=== PATIENT | male | born 1965 | race Caucasian/White ===

== ENCOUNTER 2017-03-28 03:39 | Observation (INO) ==
--- NOTE | 2017-03-28 04:10 | Emergency Department Note ---
Disposition Clinical Impression: Congestive heart failure Qualifiers: Congestive heart failure type: unspecified congestive heart failure type Congestive heart failure chronicity: acute Qualified Code(s): I50.9 - Heart failure, unspecified Disposition: Still a Patient Referrals: NO,PCP [Primary Care Provider] - Forms: ED Satisfaction Letter Time of Disposition: 06:35 SOB HPI - General Chief Complaint: ED Shortness of Breath/Dyspnea Stated Complaint: ALEC Time Seen by Provider: 03/28/17 03:52 Source: patient Mode of arrival: ambulatory Limitations: no limitations Nursing Notes Reviewed: Yes Vital Signs Reviewed: Yes - History of Present Illness Patient presents to the emergency department with complaints of shortness of breath. States that he has been progressively short of breath over the last 3- 4 days. States he is unable to sleep at approximately 4 hours of sleep the last 3 days. He denies any history of hypertension, diabetes, cardiovascular disease. States he has never had an EKG done before. He is a smoker. Denies any fever. He does complain of some epigastric pain at this time denies any radiation to chest pain into the left shoulder left arm. No diaphoresis. No nausea or vomiting. Denies any lower extremity swelling. Has had some periods that diarrhea. Pt Subjective Complaint: shortness of breath Onset (ago): day(s) (2-3) Severity: moderate Consistency/Duration: gradually worsening Improves with: nothing Worsens with: lying flat, exertion Associated symptoms: Reports: chest pain (points to epigastric pain. ), wheezing, abdominal pain. Denies: fever, cough, sputum production, nausea/ vomiting, syncope, sense of impending doom Treatment prior to arrival: none - Related Data Allergies Allergy/AdvReac Type Severity Reaction Status Date / Time No Known Allergies Allergy Verified 03/28/17 03:41 All systems ED: reviewed and negative except as stated. Constitutional: Denies: fever, chills, weakness, weight change Eyes: Denies: eye pain, eye discharge, vision change ENT ED: Denies: ear pain, throat pain, dental pain, hearing loss, epistaxis, congestion, dysphagia Cardiovascular: Reports: chest pain Respiratory: Reports: cough, dyspnea, wheezes. Denies: hemoptysis, stridor, sputum production Gastrointestinal: Reports: abdominal pain (epigastric ) Musculoskeletal: Denies: back pain, neck pain, arthralgia, myalgia Integumentary: Denies: rash, abrasion, lesions Neurological: Denies: headache, weakness, numbness, paresthesias, confusion, abnormal gait, vertigo Psychiatric: Denies: anxiety, depression, suicidal thoughts, homicidal thoughts , auditory hallucinations, visual hallucinations Past Medical History - Past Medical History Attestation: Yes The following information was validated with the patient. Source: patient, nursing notes reviewed Medical history: Reports: no medical history Psychiatric history: Reports: depression - Social History Smoking Status: Current every day smoker Smokeless Tobacco Status: No Alcohol use: Reports: occasionally Drug use: Reports: none Physical Exam - General Limitations: no limitations General appearance: alert - Head Head exam: atraumatic, normocephalic, normal inspection - Eye Eye exam: Present: normal appearance, PERRL, EOMI - Expanded ENT Exam External ear exam: Present: normal external inspection. Absent: pain with movement Nose exam: negative: rhinorrhea, sinus tenderness Mouth exam: Present: normal external inspection Teeth exam: Present: normal inspection Throat exam: Present: normal inspection - Neck Neck exam: Present: normal inspection, full ROM, trachea midline. Absent: tenderness, meningismus, lymphadenopathy, thyromegaly - Chest Chest inspection: Present: normal inspection, symmetric chest wall rise. Absent : tenderness, rash, abscess - Expanded Respiratory Exam Location: wheezes: Left, Right, Lower, rales: Right, Lower, decreased breath sounds: Left, Right, Upper, Lower - Cardiovascular Cardiovascular exam: Present: regular rate, normal rhythm, normal heart sounds. Absent: systolic murmur, diastolic murmur, JVD - Expanded Cardiovascular Exam Peripheral pulses: 3+: carotid (R), carotid (L), radial (R), radial (L), posterior tibialis (R), posterior tibialis (L), dorsalis pedis (R), dorsalis pedis (L) - Abdominal Exam Abdominal exam: Present: soft, Non-Tender, normal bowel sounds, hypoactive bowel sounds, other (large abdomen, tympanic ). Absent: tenderness, distention , guarding, rebound, rigidity Abdominal tenderness: Present: epigastrium - Extremities Exam Extremities exam: Present: normal inspection, full ROM. Absent: tenderness, pedal edema - Back Exam Back exam: Present: normal inspection, full ROM. Absent: tenderness, muscle spasm, rashes, sciatic notch tenderness (L) - Neurological Exam Neurological exam: Present: alert, oriented X3, CN II-XII intact, normal gait, reflexes normal. Absent: motor sensory deficit - Skin Skin exam: Present: warm, dry, intact, normal color. Absent: erythema ( ) Course - Reevaluation(s) Reevaluation #1: discussed with patient and his the need to obtain CTA chest and rule out PE. vs. CHF. Patient states Morphine helped "some". States the shortness of breath has just been getting progressively worse, making it difficult for him to walk into work from the parking lot without stopping several times. He states this is "just not me, I never get this out of breath". At this time he appears to be in no acute distress. Oxygen is maintained at 3l/min per n.c., heart monitor showing SR, Previous CXR from 10 years shows his heart is quite enlarged from that study. Time: 05:19 Vital Signs Temperature 98.2 F 03/28/17 03:42 Pulse Rate 80 03/28/17 03:42 Respiratory Rate 20 03/28/17 03:42 Blood Pressure 128/80 03/28/17 03:42 O2 Sat by Pulse Oximetry 96 03/28/17 03:42 Temperature 98.2 F 03/28/17 03:42 Pulse Rate 77 03/28/17 05:05 Respiratory Rate 18 03/28/17 05:05 Blood Pressure 101/72 03/28/17 05:05 O2 Sat by Pulse Oximetry 97 03/28/17 05:05 Oxygen Delivery Oxygen Delivery Room Air Shortness of Breath/Dyspnea - Differential Diagnosis Likely: congestive heart failure - Lab Data Lab results reviewed: Yes I reviewed the patient's lab results. Result diagrams: 03/28/17 04:30 03/28/17 04:30 Lab Results 03/28/17 03/28/17 03/28/17 Range/Units 04:30 04:30 04:30 WBC 7.3 (4.3-11.1) K/mcL RBC 4.43 (4.19-5.50) M/mcL Hgb 14.0 (12.9-16.9) g/dL Hct 41.9 (37.5-50.1) % MCV 94.6 (83.0-100.0) fL MCH 31.6 (28.0-33.3) pg MCHC 33.4 (31.6-35.5) g/dL RDW 14.1 (11.5-14.5) % Plt Count 211 (140-400) K/mcL MPV 10.0 (9.4-12.4) fL Immature Gran % 0.3 (0-4) % Seg Neutrophils % 55.3 % Lymphocytes % 35.0 % Monocytes % 7.1 % Eosinophils % 1.6 % Basophils % 0.7 % Neutrophils # 4.1 (1.6-8.9) K/mcL Lymphocytes # 2.6 (0.6-4.6) K/mcL Monocytes # 0.5 (0.0-1.3) K/mcL Eosinophils # 0.1 (0.0-0.6) K/mcL Basophils # 0.1 (0.0-0.2) K/mcL D-Dimer 1255 H (0-500) ng/mLFEU Sodium (136-145) mEq/L Potassium (3.5-4.5) mEq/L Chloride (98-109) mEq/L Carbon Dioxide (19-29) mEq/L BUN (8-26) mg/dL Creatinine (0.72-1.25) mg/dL Est GFR ( Amer) (> 60) Est GFR (Non-Af Amer) (> 60) BUN/Creatinine Ratio (6-26) Glucose (70-99) mg/dL Calculated Osmolality (280-300) Calcium (8.6-10.8) mg/dL Total Bilirubin (0.2-1.2) mg/dL Direct Bilirubin (0.0-0.5) mg/dL Indirect Bilirubin (0.0-1.2) mg/dL AST (5-34) Units/L ALT (0-55) Units/L Alkaline Phosphatase (38-126) Units/L Troponin I 0.02 (0-0.03) ng/mL B-Natriuretic Peptide (0-100) pg/mL Serum Total Protein (6.0-8.3) g/dL Albumin (3.5-5.0) g/dL Globulin (2.4-3.5) g/dL Albumin/Globulin Ratio (1.1-2.2) Amylase (25-125) Units/L Lipase (8-78) Units/L 03/28/17 03/28/17 Range/Units 04:30 04:30 WBC (4.3-11.1) K/mcL RBC (4.19-5.50) M/mcL Hgb (12.9-16.9) g/dL Hct (37.5-50.1) % MCV (83.0-100.0) fL MCH (28.0-33.3) pg MCHC (31.6-35.5) g/dL RDW (11.5-14.5) % Plt Count (140-400) K/mcL MPV (9.4-12.4) fL Immature Gran % (0-4) % Seg Neutrophils % % Lymphocytes % % Monocytes % % Eosinophils % % Basophils % % Neutrophils # (1.6-8.9) K/mcL Lymphocytes # (0.6-4.6) K/mcL Monocytes # (0.0-1.3) K/mcL Eosinophils # (0.0-0.6) K/mcL Basophils # (0.0-0.2) K/mcL D-Dimer (0-500) ng/mLFEU Sodium 138 (136-145) mEq/L Potassium 4.0 (3.5-4.5) mEq/L Chloride 105 (98-109) mEq/L Carbon Dioxide 25 (19-29) mEq/L BUN 8 (8-26) mg/dL Creatinine 0.84 (0.72-1.25) mg/dL Est GFR ( Amer) > 60 (> 60) Est GFR (Non-Af Amer) > 60 (> 60) BUN/Creatinine Ratio 10 (6-26) Glucose 109 H (70-99) mg/dL Calculated Osmolality 285 (280-300) Calcium 9.3 (8.6-10.8) mg/dL Total Bilirubin 0.9 (0.2-1.2) mg/dL Direct Bilirubin 0.4 (0.0-0.5) mg/dL Indirect Bilirubin 0.5 (0.0-1.2) mg/dL AST 29 (5-34) Units/L ALT 59 H (0-55) Units/L Alkaline Phosphatase 61 (38-126) Units/L Troponin I (0-0.03) ng/mL B-Natriuretic Peptide 1637 H (0-100) pg/mL Serum Total Protein 7.2 (6.0-8.3) g/dL Albumin 3.6 (3.5-5.0) g/dL Globulin 3.6 H (2.4-3.5) g/dL Albumin/Globulin Ratio 1.0 L (1.1-2.2) Amylase 29 (25-125) Units/L Lipase 28 (8-78) Units/L - Radiology Data Radiology results reviewed: Yes I reviewed the patient's radiology results. S.B.Faustino - Janis.Wily Background: Presenting Complaint, Relevant PMH, Meds, & Allergies Assessment: Vital Signs, Course and respsone to treatment, Exam Concerns, Patient/Family Expectation, Pertinant Lab Results, Outstanding Labs Recommendation: Recommendation based on pending studies, treatments, or consults S.B.A.Tam Report Given to: JASWINDER Edwards Repor Time: 06:35 (.) Attestation Statement - Attestation Attestation: I examined this patient and my medical decision-making was reviewed with the ENVIRONMENTAL STUDIES PROFESSOR/NERIS/Advanced Practice Nurse/Resident Physician. I agree with the documented findings, disposition and treatment plan as described except to the extent set forth below. The patient to ED with difficulty in breathing. Has progressed over 3-4 days. Not sleeping. Exam shows him in no respiratory distress. Few scattered rales. Plan. The patient has an enlarged heart on chest x-ray. Elevated BNP dimer was elevated so CT was done that shows some edema. Patient is admitted to medicine. History of Present Illness - General Chief Complaint: ED Shortness of Breath/Dyspnea Stated Complaint: ALEC Time Seen by Provider: 03/28/17 03:52 Limitations: no limitations - History of Present Illness Severity: moderate Improves with: nothing Worsens with: lying flat, exertion Associated symptoms: Reports: chest pain (points to epigastric pain. ), wheezing, abdominal pain. Denies: fever, cough, sputum production, nausea/ vomiting, syncope, sense of impending doom Treatment prior to arrival: none - Related Data Allergies Allergy/AdvReac Type Severity Reaction Status Date / Time No Known Allergies Allergy Verified 03/28/17 03:41
[2017-03-28] MEDS ORDERED: 0.9 % Sodium Chloride 1,000 ML IVC SCH (04:15)
[2017-03-28] MEDS ORDERED: *HR* Morphine 2 MG/ML SYRINGE IVP ONE (04:33)
[2017-03-28 04:38] LABS: Basophils # 0.1 K/mcL (0.0-0.2); Basophils % 0.7 %; Eosinophils # 0.1 K/mcL (0.0-0.6); Eosinophils % 1.6 %; Hematocrit 41.9 % (37.5-50.1); Immature Granulocytes % 0.3 % (0-4); Lymphocytes # 2.6 K/mcL (0.6-4.6); Mean Corpuscular HGB Conc 33.4 g/dL (31.6-35.5); Mean Corpuscular Hemoglobin 31.6 pg (28.0-33.3); Mean Corpuscular Volume 94.6 fL (83.0-100.0); Monocytes # 0.5 K/mcL (0.0-1.3); Monocytes % 7.1 %; Neutrophils # 4.1 K/mcL (1.6-8.9); Platelet Count 211 K/mcL (140-400); Red Blood Count 4.43 M/mcL (4.19-5.50); Red Cell Distribution Width 14.1 % (11.5-14.5); Segmented Neutrophils % 55.3 %
[2017-03-28 04:58] LABS: Alanine Aminotransferase 59 Units/L (0-55); Albumin 3.6 g/dL (3.5-5.0); Alkaline Phosphatase 61 Units/L (38-126); Amylase 29 Units/L (25-125); Aspartate Amino Transferase 29 Units/L (5-34); BUN/Creatinine Ratio 10 (6-26); Bilirubin,Direct 0.4 mg/dL (0.0-0.5); Bilirubin,Indirect 0.5 mg/dL (0.0-1.2); Bilirubin,Total 0.9 mg/dL (0.2-1.2); Blood Urea Nitrogen 8 mg/dL (8-26); Calcium 9.3 mg/dL (8.6-10.8); Carbon Dioxide 25 mEq/L (19-29); Chloride 105 mEq/L (98-109); Globulin 3.6 g/dL (2.4-3.5); Glucose 109 mg/dL (70-99); Lipase 28 Units/L (8-78); Osmolality,Calculated 285 (280-300); Sodium 138 mEq/L (136-145); Total Protein 7.2 g/dL (6.0-8.3); eGFR For African Americans > 60 (> 60); eGFR For Non-African Americans > 60 (> 60)
[2017-03-28] MEDS ORDERED: Furosemide 40 MG/4 ML VIAL IVP ONE (06:33)
--- NOTE | 2017-03-28 06:44 | Emergency Department Note ---
Disposition Clinical Impression: Congestive heart failure Qualifiers: Congestive heart failure type: unspecified congestive heart failure type Congestive heart failure chronicity: acute Qualified Code(s): I50.9 - Heart failure, unspecified Disposition: Admitted As Inpatient Condition: Fair SOB HPI - General Chief Complaint: ED Shortness of Breath/Dyspnea Stated Complaint: ALEC Time Seen by Provider: 03/28/17 03:52 Source: patient Mode of arrival: ambulatory Limitations: no limitations - History of Present Illness Severity: moderate Improves with: nothing Worsens with: lying flat, exertion Associated symptoms: Reports: chest pain (points to epigastric pain. ), wheezing, abdominal pain. Denies: fever, cough, sputum production, nausea/ vomiting, syncope, sense of impending doom Treatment prior to arrival: none - Related Data Allergies Allergy/AdvReac Type Severity Reaction Status Date / Time No Known Allergies Allergy Verified 03/28/17 03:41 Constitutional: Denies: fever, chills, weakness, weight change Eyes: Denies: eye pain, eye discharge, vision change ENT ED: Denies: ear pain, throat pain, dental pain, hearing loss, epistaxis, congestion, dysphagia Cardiovascular: Reports: chest pain Respiratory: Reports: cough, dyspnea, wheezes. Denies: hemoptysis, stridor, sputum production Gastrointestinal: Reports: abdominal pain (epigastric ) Musculoskeletal: Denies: back pain, neck pain, arthralgia, myalgia Integumentary: Denies: rash, abrasion, lesions Neurological: Denies: headache, weakness, numbness, paresthesias, confusion, abnormal gait, vertigo Psychiatric: Denies: anxiety, depression, suicidal thoughts, homicidal thoughts , auditory hallucinations, visual hallucinations Past Medical History - Past Medical History Medical history: Reports: no medical history Psychiatric history: Reports: depression - Social History Smoking Status: Current every day smoker Smokeless Tobacco Status: No Alcohol use: Reports: occasionally Drug use: Reports: none Physical Exam - General Limitations: no limitations General appearance: alert Course Course Narrative: Assumed care of this patient from Augustina Badillo CNP. Patient is reportedly dyspneic x 3 days and has been found to have cardiomegaly, pulmonary vascular congestion, interstitial edema, bilateral pleural effusions, rales, and several mediastinal lymph nodes. Vitals are normal and stable. He does not have an O2 requirement. He tells me that he had an upper respiratory infection a few weeks ago that "just never went away". He has had sinus congestion (frontal pressure) and post-nasal drainage. He thought this was causing his dyspnea so he called his PCP and was given Rx Augmentin after a telemedicine evaluation. His main complaint today is orthopnea which has caused very troubling insomnia. He will require admission for diuresis and further evaluation. Hospitalist was consulted. He has accepted the patient. Of note, patient reportedly presented initially with more of an infectious type of appearance and thus IV fluid were ordered - at a slow rate. When the diagnosis of CHF was made, the fluids were to be discontinued, however the patient had inadvertantly already received a liter. The nurse reports that the rate was not put back to originally ordered rate after it was opened up to flush the morphine that was given. PAtient does not report increased dyspnea. He has been given IV lasix. The case was discussed with Dr. Alatorre. She has seen the patient and agrees with the plan to admit the patient. Vital Signs Temperature 98.2 F 03/28/17 03:42 Pulse Rate 80 03/28/17 03:42 Respiratory Rate 20 03/28/17 03:42 Blood Pressure 128/80 03/28/17 03:42 O2 Sat by Pulse Oximetry 96 03/28/17 03:42 Temperature 98.2 F 03/28/17 03:42 Pulse Rate 90 03/28/17 06:56 Respiratory Rate 18 03/28/17 07:18 Blood Pressure 112/93 03/28/17 07:18 O2 Sat by Pulse Oximetry 94 03/28/17 06:56 Oxygen Delivery Oxygen Delivery Room Air Shortness of Breath/Dyspnea - Lab Data Result diagrams: 03/28/17 04:30 03/28/17 04:30 Lab Results 03/28/17 03/28/17 03/28/17 Range/Units 04:30 04:30 04:30 WBC 7.3 (4.3-11.1) K/mcL RBC 4.43 (4.19-5.50) M/mcL Hgb 14.0 (12.9-16.9) g/dL Hct 41.9 (37.5-50.1) % MCV 94.6 (83.0-100.0) fL MCH 31.6 (28.0-33.3) pg MCHC 33.4 (31.6-35.5) g/dL RDW 14.1 (11.5-14.5) % Plt Count 211 (140-400) K/mcL MPV 10.0 (9.4-12.4) fL Immature Gran % 0.3 (0-4) % Seg Neutrophils % 55.3 % Lymphocytes % 35.0 % Monocytes % 7.1 % Eosinophils % 1.6 % Basophils % 0.7 % Neutrophils # 4.1 (1.6-8.9) K/mcL Lymphocytes # 2.6 (0.6-4.6) K/mcL Monocytes # 0.5 (0.0-1.3) K/mcL Eosinophils # 0.1 (0.0-0.6) K/mcL Basophils # 0.1 (0.0-0.2) K/mcL D-Dimer 1255 H (0-500) ng/mLFEU Sodium (136-145) mEq/L Potassium (3.5-4.5) mEq/L Chloride (98-109) mEq/L Carbon Dioxide (19-29) mEq/L BUN (8-26) mg/dL Creatinine (0.72-1.25) mg/dL Est GFR ( Amer) (> 60) Est GFR (Non-Af Amer) (> 60) BUN/Creatinine Ratio (6-26) Glucose (70-99) mg/dL Calculated Osmolality (280-300) Calcium (8.6-10.8) mg/dL Total Bilirubin (0.2-1.2) mg/dL Direct Bilirubin (0.0-0.5) mg/dL Indirect Bilirubin (0.0-1.2) mg/dL AST (5-34) Units/L ALT (0-55) Units/L Alkaline Phosphatase (38-126) Units/L Troponin I 0.02 (0-0.03) ng/mL B-Natriuretic Peptide (0-100) pg/mL Serum Total Protein (6.0-8.3) g/dL Albumin (3.5-5.0) g/dL Globulin (2.4-3.5) g/dL Albumin/Globulin Ratio (1.1-2.2) Amylase (25-125) Units/L Lipase (8-78) Units/L 03/28/17 03/28/17 Range/Units 04:30 04:30 WBC (4.3-11.1) K/mcL RBC (4.19-5.50) M/mcL Hgb (12.9-16.9) g/dL Hct (37.5-50.1) % MCV (83.0-100.0) fL MCH (28.0-33.3) pg MCHC (31.6-35.5) g/dL RDW (11.5-14.5) % Plt Count (140-400) K/mcL MPV (9.4-12.4) fL Immature Gran % (0-4) % Seg Neutrophils % % Lymphocytes % % Monocytes % % Eosinophils % % Basophils % % Neutrophils # (1.6-8.9) K/mcL Lymphocytes # (0.6-4.6) K/mcL Monocytes # (0.0-1.3) K/mcL Eosinophils # (0.0-0.6) K/mcL Basophils # (0.0-0.2) K/mcL D-Dimer (0-500) ng/mLFEU Sodium 138 (136-145) mEq/L Potassium 4.0 (3.5-4.5) mEq/L Chloride 105 (98-109) mEq/L Carbon Dioxide 25 (19-29) mEq/L BUN 8 (8-26) mg/dL Creatinine 0.84 (0.72-1.25) mg/dL Est GFR ( Amer) > 60 (> 60) Est GFR (Non-Af Amer) > 60 (> 60) BUN/Creatinine Ratio 10 (6-26) Glucose 109 H (70-99) mg/dL Calculated Osmolality 285 (280-300) Calcium 9.3 (8.6-10.8) mg/dL Total Bilirubin 0.9 (0.2-1.2) mg/dL Direct Bilirubin 0.4 (0.0-0.5) mg/dL Indirect Bilirubin 0.5 (0.0-1.2) mg/dL AST 29 (5-34) Units/L ALT 59 H (0-55) Units/L Alkaline Phosphatase 61 (38-126) Units/L Troponin I (0-0.03) ng/mL B-Natriuretic Peptide 1637 H (0-100) pg/mL Serum Total Protein 7.2 (6.0-8.3) g/dL Albumin 3.6 (3.5-5.0) g/dL Globulin 3.6 H (2.4-3.5) g/dL Albumin/Globulin Ratio 1.0 L (1.1-2.2) Amylase 29 (25-125) Units/L Lipase 28 (8-78) Units/L
--- NOTE | 2017-03-28 08:37 | Internal Med History&Physical ---
Date of Encounter: 03/28/17 Time of Encounter: 08:43 Assessment and Plan (1) Congestive heart failure Current visit: Yes Status: Acute he has worsening exertional dyspnea , CTA neg for PE(had elevated d-dimer) CTA showed interstitial edema and pleural effsuion IV lasix was given at ED,reports mild clinical improvement BNP elevated will order ECHO> noted that EF of 10-15% with severe global hypokinesia. IV lasix 40mg BID he has new onset CHF, will order cardiac diet with fluid restriction. consider cardio consult , will need ischemic work up, will not start BB as he has acute onset CHF and was not on BB at home. he has wheezing on exam, he was a past smoker and quit recently, will add duonebs for now. will keep BIPAP prn for overnight Qualifiers: Congestive heart failure type: unspecified congestive heart failure type Congestive heart failure chronicity: acute Qualified Code(s): I50.9 - Heart failure, unspecified (2) HTN (hypertension) Current visit: Yes Status: Acute stable Qualifiers: Hypertension type: essential hypertension Qualified Code(s): I10 - Essential (primary) hypertension (3) Diarrhea Current visit: Yes Status: Acute reports that its 2/2 laxative use that he took for constipation. will hold the laxative now, will monitor will need OP referral for colonoscopy, he reports that he never had colonoscopy. Qualifiers: Diarrhea type: unspecified type Qualified Code(s): R19.7 - Diarrhea, unspecified Internal Medicine - H&P: HPI Chief complaint: sob Admitted From: Home Plans for Post Hospital Care: Home History of present illness: Mr. Avendaño is a 51 year old male with PMH of HTN and past smoker presented to ED with exertional dyspnea fro 3 days , he reports that he had an upper respiratory infection a few weeks ago that "just never went away". He has had sinus congestion (frontal pressure) and post-nasal drainage. He thought this was causing his dyspnea so he called his PCP and was given Rx Augmentin after a telemedicine evaluation. His main complaint today is orthopnea and exertional dyspnea that has worsened over the last 3 days. He has been given IV lasix at ED and at the time of my evaluation, he says he feels better. he also c/o some cough with productive sputum - yellowish , no fever or chest pain. he reports that he had diarrhea initially for which he took imodium that made him constipated and took laxatives and has diarrhea again. he denies fever or chest pain. no h/o CHF or COPD. Past Med Surg Social Fam HX - Past Medical History Medical history: no medical history Psychiatric history: depression - Social History Smoking Status: Current every day smoker Smokeless Tobacco Status: No Alcohol use: occasionally Drug use: none Internal Medicine - H&P: Meds Amoxicillin/Clavulanate [Augmentin] 875 mg PO BIDWM 03/28/17 [History] Bisacodyl [Dulcolax] 10 mg PO DAILY PRN 03/28/17 [History] Bismuth Subsalicylate [Pepto-Bismol] 262 mg PO BID PRN 03/28/17 [History] Loperamide HCl [Imodium A-D] 2 mg PO BID PRN 03/28/17 [History] Allergies No Known Allergies Allergy (Verified 03/28/17 03:41) All Systems PM: A 10-system review of systems was performed and is negative for pertinent findings except as documented above in the HPI. - Constitutional Constitutional: as per HPI - EENT Eyes: no change in vision, no discharge, no pain, no photophobia Ears: as per HPI Nose, mouth and throat: no dysphagia, no nasal discharge, no neck pain, no sore throat - Breasts Breasts: as per HPI - Cardiovascular Cardiovascular ROS IM: as per HPI, dyspnea, dyspnea on exertion, paroxysmal nocturnal dyspnea - Respiratory Respiratory: cough, dyspnea on exertion - Constitutional Vitals: Temp Pulse Resp BP Pulse Ox 97.6 F 93 16 117/85 97 03/28/17 08:04 03/28/17 08:04 03/28/17 08:04 03/28/17 08:04 03/28/17 08:09 General appearance: Present: A&O X 3, no acute distress Exam: Neck supple. Chest bilateral wheezing, no crepitations. CVS S2, no murmurs rubs or gallops. Abdomen soft, mildly distended, nontender, bowel sounds are present. Extremities no edema. Neuro no focal deficits Internal Med - H&P Results - Labs CBC & Chem 7: 03/28/17 04:30 03/28/17 04:30
[2017-03-28] MEDS ORDERED: Naloxone 0.4 MG/ML INJ IVP PRN (08:58)
[2017-03-28] MEDS: Ipratropium/Albuterol Neb 3 ML IH SCH ×4 (11:01→23:54)
[2017-03-28] MEDS: *HR* Heparin 5,000 UNIT/ML VIAL SQ SCH ×2 (11:13→17:50)
[2017-03-28] MEDS: Aspirin 81 MG TAB.CHEW PO SCH (11:13)
--- NOTE | 2017-03-28 17:50 | ECHO - Doppler Report ---
Echocardiogram Name: Dale Westrow Date of Study: 03/28/2017 Date: 1965 Ht: 72.0 in Medical Record#: [id number] Age: 51 Wt: 232.0 lb Gender: Male BSA: 2.27 Order #: [id number] Location: [facility] Room #: 2NE28 Reading Physician: Afshan Zamora DO Weapons Officer: Yamilet Richards RDCS Ordering Physician: Santiago Regalado MD Primary Physician: None Indications: Congestive heart failure Impressions: LVEF 10-15%. There is severe global hypokinesis. Left ventricle is severely dilated. There is evidence of mild diastolic dysfunction of the left ventricle. RV is normal in size with mild reduction of function. Mild mitral regurgitation. Mild tricuspid regurgitation. No pulmonary hypertension. LV apex is suboptimally visualized. Recommend repeat Limited echo with Definity. Findings communicated to ordering provider. Left Ventricular Wall Motion: Rest Echo Findings The apex, apical inferior, mid inferior, basal inferior, apical anterior, mid anterior, basal anterior, apical septal, mid inferior septal, basal inferior septal, apical lateral, mid anterior lateral, basal anterior lateral, mid anterior septal, mid inferior lateral, basal anterior septal and basal inferior lateral almodovar were hypokinetic. Findings: Study Quality * Technically sub-optimal due to body habitus. ECG Findings * Consider sinus rhythm with BBB. Left Ventricle * LVEF 10-15%. * Severely dilated left ventricle. * Indeterminate diastolic function. Aortic Valve * No aortic regurgitation. * Trileaflet aortic valve. * Normal aortic valve structure. * No aortic stenosis. Mitral Valve * Normal mitral valve structure. * No mitral stenosis. * Mild mitral regurgitation. Tricuspid Valve * Tricuspid valve not well visualized. * Mild tricuspid regurgitation. * Estimated RA pressure is 3 mmHg. * Estimated RVSP is 27 mmHg. * No pulmonary hypertension. Pulmonic Valve * Pulmonic valve is not well visualized. * No pulmonic stenosis. * Trace pulmonic regurgitation. Pulmonary Artery * Pulmonary artery not well visualized. Right Atrium * Moderately dilated right atrium. Right Ventricle * RV size is normal with visually mild reduction in function. Normal Lat S josesito. Pericardium * There is no pericardial effusion present. Interatrial Septum * No evidence of PFO by color Doppler. IVC * Normal IVC dimensions and inspiratory collapse. Left Atrium * Severely dilated left atrium. Aorta * Normally sized aortic root. History Hypertension Family History of CAD Measurements: BP: 117/ 85 2D Normal Values RVIDd: 3.60 cm <2.7 cm IVSd: .80 cm 0.6 - 1.0 cm LVIDd: 7.60 cm 3.7 - 5.6 cm LVPWd: 1.20 cm 0.6 - 1.1 cm LVIDs: 7.00 cm 1.5 - 3.6 cm AO: 2.70 cm < 4.0 cm LA: 5.10 cm 2.0 - 4.0cm %FS: 7.89 cm >25 % LVOT Diam: 2.10 cm LA volume: 120 Mitral Valve Peak E:.92 m/sec Peak A:.30 m/sec E/A Ratio:3.1 Peak E' Lat Josesito:4.95 cm/s Peak E' Med Josesito:3.34 cm/s E/E' Lat Ratio:18.5 E/E' Med Ratio:27.5 Tricuspid Valve TV Regurg Peak Grad: 24.00mmHg TV Regurg Peak Josesito: 2.45m/sec Updated by Afshan Zamora on 03/28/2017 5:40:54 PM electronically signed on 03/28/2017 5:46:21 PM with status of Final Wall Motion [place]: 1=Normal, 2=Hypokinesis, 3=Akinesis, 4=Dyskinesis, 5=Aneurysmal, 6=Hyperkinetic, X=Not Visualized (Blank)=Missing
[2017-03-28] MEDS: Furosemide 40 MG/4 ML VIAL IVP SCH (17:51)
--- NOTE | 2017-03-28 18:05 | Electrocardiograph Report ---
[place] [id number] Test Date: 2017-03-28 Pat Name: Dale Avendaño Department: 102 Room: 2NE28 Gender: M Anatomy Teacher: Chris : 1965 Requested By: Afshan Badillo Order Number: [id number] Reading MD: Afshan Zamora Measurements Intervals [facility] Rate: 87 P: 56 SD: 198 QRS: -18 QRSD: 99 T: 174 QT: 398 QTc: 443 Interpretive Statements SINUS RHYTHM LEFT ATRIAL ENLARGEMENT BORDERLINE CRITERIA FOR LVH Nonspecific ST-T wave changes Electronically Signed On 03-28-2017 18:03:26 EDT by Afshan Zamora
[2017-03-28] MEDS ORDERED: Melatonin 3 MG TABLET PO PRN (22:52)
[2017-03-29] MEDS: Ipratropium/Albuterol Neb 3 ML IH SCH ×5 (04:43→20:08)
[2017-03-29] MEDS: *HR* Heparin 5,000 UNIT/ML VIAL SQ SCH ×2 (05:19→17:14)
[2017-03-29 05:23] LABS: Basophils # 0.1 K/mcL (0.0-0.2); Basophils % 0.8 %; Eosinophils # 0.1 K/mcL (0.0-0.6); Eosinophils % 1.3 %; Hematocrit 43.6 % (37.5-50.1); Hemoglobin 14.8 g/dL (12.9-16.9); Immature Granulocytes % 0.5 % (0-4); Lymphocytes # 2.9 K/mcL (0.6-4.6); Lymphocytes % 37.3 %; Mean Corpuscular HGB Conc 33.9 g/dL (31.6-35.5); Mean Corpuscular Hemoglobin 32.8 pg (28.0-33.3); Mean Corpuscular Volume 96.7 fL (83.0-100.0); Mean Platelet Volume 10.2 fL (9.4-12.4); Monocytes # 0.8 K/mcL (0.0-1.3); Neutrophils # 3.8 K/mcL (1.6-8.9); Nucleated Red Blood Cells 0.4 /100 WBC (0); Platelet Count 214 K/mcL (140-400); Red Blood Count 4.51 M/mcL (4.19-5.50); Red Cell Distribution Width 14.4 % (11.5-14.5); Segmented Neutrophils % 49.1 %
[2017-03-29 05:47] LABS: BUN/Creatinine Ratio 9 (6-26); Blood Urea Nitrogen 10 mg/dL (8-26); Calcium 9.1 mg/dL (8.6-10.8); Carbon Dioxide 29 mEq/L (19-29); Chloride 104 mEq/L (98-109); Glucose 98 mg/dL (70-99); Magnesium 2.2 mg/dL (1.6-2.6); Osmolality,Calculated 291 (280-300); Phosphorous 4.8 mg/dL (2.3-4.7); Potassium 3.8 mEq/L (3.5-4.5); Sodium 141 mEq/L (136-145); eGFR For African Americans > 60 (> 60); eGFR For Non-African Americans > 60 (> 60)
--- NOTE | 2017-03-29 08:26 | Internal Med Progress Note ---
<Arik Rabago - Last Filed: 03/29/17 14:57> Date of Encounter: 03/29/17 Time of Encounter: 08:25 - Assessment and plan (1) Acute systolic heart failure Current Visit: Yes Status: Acute Assessment and plan: Patient has new onset acute systolic heart failure. Echo Cario showed a EF of 10-15% with global hypokinesis, left ventricular severe dilation, mild mitral regurgitation and mild tricuspid regurgitation. Patient elevated BNP of 1600. -Patient states that he has been under a lot of stress lately with undergoing bankruptcy, and multiple deaths in the family. -Patient has not had any medical follow-up for the last 7 years. It is unclear if this is acute versus progressive chronic heart failure. She states that his grandparents and his mom had heart disease however he does not know specifically what that was. He denied any family history of certain cardiac arrest. -Furthermore patient has had a upper respiratory infection that preceded the onset of his shortness of breath. This could also be viral cardiomyopathy. -Therefore to unclear if this is ischemic, chronic progressive, or viral cardiomyopathy. -Cardiology evaluated patient and we will diurese patient for her 1-2 days before underwent heart catheterization. -We will continue Lasix 40 mg IV twice a day. -Continue aspirin (2) DVT prophylaxis Current Visit: Yes Status: Acute Assessment and plan: Continue heparin 5000 units subcutaneous every 12 hours (3) URI (upper respiratory infection) Current Visit: Yes Status: Acute Assessment and plan: Patient has had a upper respiratory infection symptoms 2 weeks now consisting of sinus congestion and sinus pain over the frontal and maxillary sinuses. He is prescribed Augmentin, and states his symptoms have improved after starting the antibiotic.He denies sore throat. States he has productive cough. WBC 7.7. afebrile. Continue augmentin: patient has taken two doses before admission. Qualifiers: URI type: unspecified URI Qualified Code(s): J06.9 - Acute upper respiratory infection, unspecified - Subjective Interval history: 51-year-old male presents with chief complaint of shortness of breath of 3 days that has been progressively getting worse. Patient has had upper respiratory tract infection that has just not gone away for a few weeks. He was prescribed Augmentin by his PCP. Patient states his shortness of breath gets worse with laying down and exertion. In the emergency department he was given IV Lasix which helped improve his symptoms. He has had a productive sputum that is yellow. Patient underwent CT of his negative for PE but showed cardiomegaly with mild congestive failure, interstitial edema and vascular congestion. Echocardiogram showed an EF of 10-15% with global left ventricular hypokinesis. This morning patient states his shortness of breath is improved, he is on 2 L oxygen saturating at 96%. He denies chest pain, palpitations, abdominal pain, nausea, vomiting. Patient has never oxygen before. He does not have a past medical history.He has not seen a PCP in the last 7 years. - Constitutional Vitals: Temp Pulse Resp BP Pulse Ox 97.7 F 99 18 107/75 96 03/29/17 06:00 03/29/17 06:00 03/29/17 06:00 03/29/17 06:00 03/29/17 06:00 General appearance: Present: A&O X 3, no acute distress - Other Additional findings: General: Alert and oriented to place time and situation. Without distress HEENT: Head atraumatic, normocephalic, EOMI, PERRLA, neck nontender to palpation , absent Lymphadenopathy, Moist Mucous Membranes, absent JVD Heart: Regular rate and rhythm with no murmur Lungs: Bilateral wheezing diffusely Abdomen: Soft nontender, nondistended positive bowel sounds Extremities: Absent pedal edema, Vascular: Pedal and radial pulses 2 out of 4 Internal Medicine: Result - Labs CBC & Chem 7: 03/29/17 05:04 03/29/17 05:04 Labs: Short CBC 03/29/17 Range/Units 05:04 WBC 7.7 (4.3-11.1) K/mcL Hgb 14.8 (12.9-16.9) g/dL Hct 43.6 (37.5-50.1) % Plt Count 214 (140-400) K/mcL Neutrophils # 3.8 (1.6-8.9) K/mcL BMP 03/29/17 05:04 Sodium 141 Potassium 3.8 Chloride 104 Carbon Dioxide 29 BUN 10 Creatinine 1.06 Glucose 98 Calcium 9.1 - ABG Interpretation ABG results: PT/INR, D-dimer D-Dimer 1255 ng/mLFEU (0-500) H 03/28/17 04:30 Consult Discharge Plan - Plan Referrals: NO,PCP [Primary Care Provider] - <Feliz Alvarado P - Last Filed: 03/29/17 17:52> Date of Encounter: 03/29/17 - Constitutional Vitals: Temp Pulse Resp BP Pulse Ox 98.3 F 103 16 97/71 93 03/29/17 15:07 03/29/17 15:07 03/29/17 15:07 03/29/17 15:07 03/29/17 15:07 Internal Medicine: Result - Labs CBC & Chem 7: 03/29/17 05:04 03/29/17 05:04 Labs: Short CBC 03/29/17 Range/Units 05:04 WBC 7.7 (4.3-11.1) K/mcL Hgb 14.8 (12.9-16.9) g/dL Hct 43.6 (37.5-50.1) % Plt Count 214 (140-400) K/mcL Neutrophils # 3.8 (1.6-8.9) K/mcL BMP 03/29/17 05:04 Sodium 141 Potassium 3.8 Chloride 104 Carbon Dioxide 29 BUN 10 Creatinine 1.06 Glucose 98 Calcium 9.1 - ABG Interpretation ABG results: PT/INR, D-dimer D-Dimer 1255 ng/mLFEU (0-500) H 03/28/17 04:30 - Attending Attestation I examined this patient and my medical decision-making was reviewed with the PASSENGER LOCOMOTIVE ENGINEER/PA/Advanced Practice Nurse/Resident Physician. I agree with the documented findings, disposition and treatment plan as described except to the extent set forth below. cardiac cath to rule out CAD after optimization
[2017-03-29] MEDS: Aspirin 81 MG TAB.CHEW PO SCH (09:34)
[2017-03-29] MEDS: Furosemide 40 MG/4 ML VIAL IVP SCH ×2 (09:34→17:07)
--- NOTE | 2017-03-29 09:37 | Cardiology Consult Note ---
Date of Encounter: 03/29/17 Time of Encounter: 09:37 Assessment and Plan (1) Acute systolic heart failure Current Visit: Yes Status: Acute - New onset congestive heart failure. Echocardiogram done 03/28/2017 shows severe global hypokinesis, left ventricular severe dilation, mild mitral regurgitation and mild tricuspid regurgitation - Unclear etiology, could be progressive chronic heart failure versus viral cardiomyopathy versus ischemic heart disease - Continue diuresis with 40 mg Lasix IV twice a day. We will likely diuresis for another 1-2 days before heart catheterization. (2) URI (upper respiratory infection) Current Visit: Yes Status: Acute Management per primary team. -May be contributing factor to cardiomyopathy. Qualifiers: URI type: unspecified URI Qualified Code(s): J06.9 - Acute upper respiratory infection, unspecified Discussion w patient/family: The assessment and plan as outlined above was discussed with the patient and/or family members who expressed understanding and agreement. All questions were answered. Thank you for involving us in the care of your patient. Please call with any questions. History of Present Illness Consult date: 03/28/17 Requesting physician: Baldo Regalado Consult reason: new onset CHF Chief complaint: dyspnea x 3 days History of present illness: Mr. Avendaño is a 51 year old male with a past medical history of tobacco abuse who presented to [facility] ED with a chief complaint of worsening dyspnea over the last 3 days. No other prior medical history though patient has not seen a primary care physician in over 7 years. He is not currently on any home medications. States he had upper respiratory type symptoms 1-2 weeks ago. He has not been on any medications to treat this. He previously smoked 2 packs a day but quit 2 months ago. Has never required any home oxygen. Patient also describes a 3 month history of intermittent chest discomfort and right leg discomfort that is intermittent and not exacerbated by anything. Patient was initially evaluated in the emergency department and found to have an elevated d-dimer. A CTA of the chest was performed which showed mild congestive heart failure along with small bilateral pleural effusions right greater than left. His BNP was elevated at 1485. They tried to place him on BiPAP though patient tolerated less than 1 minute of this. They have also been diuresing him with Lasix 40 twice a day. The cardiology service was contacted for an ischemic workup and possible heart catheterization. Past Med Surg Social Fam HX - Past Medical History Attestation: Yes The following information was validated with the patient. Source: patient Medical history: no medical history Psychiatric history: depression - Social History Smoking Status: Current every day smoker Smokeless Tobacco Status: No Alcohol use: occasionally Drug use: none Medications and Allergies Amoxicillin/Clavulanate [Augmentin] 875 mg PO BIDWM 03/28/17 [History] Bisacodyl [Dulcolax] 10 mg PO DAILY PRN 03/28/17 [History] Bismuth Subsalicylate [Pepto-Bismol] 262 mg PO BID PRN 03/28/17 [History] Loperamide HCl [Imodium A-D] 2 mg PO BID PRN 03/28/17 [History] Allergies No Known Allergies Allergy (Verified 03/28/17 03:41) All Systems Review: A 10-system review of systems was performed and is negative for pertinent findings except as documented above in the HPI. - Constitutional Constitutional: fatigue - EENT Eyes: no blurred vision Nose, mouth and throat: no sore throat - Cardiovascular Cardiovascular: dyspnea at rest, dyspnea on exertion, other (intermittent chest discomfort), no diaphoresis, no irregular heart rhythm, no leg edema - Respiratory Respiratory: no cough, no dyspnea - Gastrointestinal Gastrointestinal: no abdominal pain - Genitourinary Genitourinary: no dysuria - Musculoskeletal Musculoskeletal: no muscle weakness - Integumentary Integumentary: no rash - Neurological Neurological: no abnormal speech, no focal weakness, no syncope Physical Examination Vital Signs, Last 4 Hours Temp Pulse Resp BP Pulse Ox 03/29/17 06:00 97.7 F 99 18 107/75 96 General: Conversant, No Apparent Distress HEENT: Atraumatic, Mucus Membranes Moist Neck: No JVD Cardiac: Reg Rate and Rhythm, No Murmur Lungs: Other (b/l diffuse wheezes) Neuro: Alert and responsive, No focal deficits noted Abdomen: Soft, Non-Tender Skin: No rashes noted on visualized skin Musculoskeletal: No Chest Wall Tenderness Extremities: No Cyanosis, No Edema, Normal Pulses Results 03/29/17 05:04 03/29/17 05:04 Lab Results 03/29/17 03/29/17 03/29/17 05:04 05:04 05:04 WBC 7.7 Hgb 14.8 Hct 43.6 Plt Count 214 Sodium 141 Potassium 3.8 Chloride 104 Carbon Dioxide 29 BUN 10 Creatinine 1.06 Glucose 98 Calcium 9.1 Magnesium 2.2 B-Natriuretic Peptide 1485 H - Imaging and Cardiology Chest Xray: report reviewed - EKG Interpretation EKG results cardiology: personally reviewed, other (NSR, large P waves, left axis deviation, ST depression in I, avL, V5, V6) Consult Discharge Plan - Plan Referrals: NO,PCP [Primary Care Provider] -
[2017-03-30] MEDS: Ipratropium/Albuterol Neb 3 ML IH SCH ×7 (00:01→23:46)
[2017-03-30] MEDS: *HR* Heparin 5,000 UNIT/ML VIAL SQ SCH ×2 (05:00→20:29)
[2017-03-30 08:12] LABS: INR 1.3; Prothrombin Time 14.2 Seconds (9.4-12.1)
--- NOTE | 2017-03-30 09:02 | Event Note ---
Date of Encounter: 03/30/17 Time of Encounter: 08:57 - Cardiology Event Note 51 yo M with acute systolic CHF. ECHO from 03/28/17 with LV dilation, global dyskinesia, mild mitral and tricuspid regurgitation of unclear etiology progressive heartfailure vs ischemic vs viral etiology. Pt states no chest pain or shortness of breath at rest or with laying flat. On SQ heparin 5000 Q12 with Pt 14.2, INR 1.3. Likely heart catheterization today.
[2017-03-30] MEDS: Aspirin 81 MG TAB.CHEW PO SCH (10:03)
--- NOTE | 2017-03-30 10:14 | Internal Med Progress Note ---
<Arik Rabago - Last Filed: 03/30/17 17:40> Date of Encounter: 03/30/17 Time of Encounter: 14:48 - Assessment and plan (1) Acute systolic heart failure Current Visit: Yes Status: Acute Assessment and plan: Patient has new onset acute systolic heart failure. Echo Cario showed a EF of 10-15% with global hypokinesis, left ventricular severe dilation, mild mitral regurgitation and mild tricuspid regurgitation. Patient elevated BNP of 1600. -Patient states that he has been under a lot of stress lately with undergoing bankruptcy, and multiple deaths in the family. -Patient has not had any medical follow-up for the last 7 years. It is unclear if this is acute versus progressive chronic heart failure. She states that his grandparents and his mom had heart disease however he does not know specifically what that was. He denied any family history of certain cardiac arrest. -Furthermore patient has had a upper respiratory infection that preceded the onset of his shortness of breath. This could also be viral cardiomyopathy. -undergo [facility] today. -appreciate cardiology recommendations. (2) DVT prophylaxis Current Visit: Yes Status: Acute Assessment and plan: Continue heparin 5000 units subcutaneous every 12 hours (3) URI (upper respiratory infection) Current Visit: Yes Status: Acute Assessment and plan: Patient has had a upper respiratory infection symptoms 2 weeks now consisting of sinus congestion and sinus pain over the frontal and maxillary sinuses. He is prescribed Augmentin, and states his symptoms have improved after starting the antibiotic.He denies sore throat. States he has productive cough. WBC 7.7. afebrile. Continue augmentin: patient has taken two doses before admission. Qualifiers: URI type: unspecified URI Qualified Code(s): J06.9 - Acute upper respiratory infection, unspecified - Subjective Interval history: SOB improved with diuresis. Denies CP, palpitations, blurry vision, nausea, abdominal pain, cough, LE pain, muscle aches, dysuria. - Constitutional Vitals: Temp Pulse Resp BP Pulse Ox 97.8 F 88 16 107/80 96 03/30/17 06:39 03/30/17 06:39 03/30/17 07:47 03/30/17 06:39 03/30/17 07:47 General appearance: Present: A&O X 3, no acute distress - Neck Neck exam general surgery: Present: supple, trachea midline. Absent: lymphadenopathy - Respiratory Respiratory exam: Present: CTAB. Absent: accessory muscle use, rales, rhonchi, wheezes - Cardiovascular Cardiovascular exam: Present: RRR, +S1, +S2. Absent: diastolic murmur, gallop, rubs, systolic murmur - GI/Abdominal GI/Abdominal exam: Present: normal bowel sounds, soft, no peritoneal signs. Absent: distended, tenderness - Extremities Exam Extremities exam: Present: warm, radial pulses palpable and symetrical. Absent : calf tenderness, cyanotic, pedal edema - Skin Skin exam: Present: dry, intact Internal Medicine: Result - Labs CBC & Chem 7: 03/29/17 05:04 03/29/17 05:04 - ABG Interpretation ABG results: PT/INR, D-dimer PT 14.2 Seconds (9.4-12.1) H 03/30/17 07:59 D-Dimer 1255 ng/mLFEU (0-500) H 03/28/17 04:30 Consult Discharge Plan - Plan Referrals: Bj Carolina DO [Partnered Physician] - 04/06/17 9:30 am <Arvin Talavera - Last Filed: 03/30/17 19:52> Date of Encounter: 03/30/17 - Assessment and plan (1) Acute systolic heart failure Current Visit: Yes Status: Acute (2) HTN (hypertension) Current Visit: Yes Status: Acute Qualifiers: Hypertension type: essential hypertension Qualified Code(s): I10 - Essential (primary) hypertension (3) URI (upper respiratory infection) Current Visit: Yes Status: Acute Qualifiers: URI type: unspecified URI Qualified Code(s): J06.9 - Acute upper respiratory infection, unspecified (4) Anxiety about health Current Visit: Yes Status: Acute (5) Tobacco abuse Current Visit: Yes Status: Acute - Constitutional Vitals: Temp Pulse Resp BP Pulse Ox 98.1 F 96 18 93/54 95 03/30/17 19:33 03/30/17 19:33 03/30/17 19:33 03/30/17 19:33 03/30/17 19:33 Internal Medicine: Result - Labs CBC & Chem 7: 03/29/17 05:04 03/29/17 05:04 - ABG Interpretation ABG results: PT/INR, D-dimer PT 14.2 Seconds (9.4-12.1) H 03/30/17 07:59 D-Dimer 1255 ng/mLFEU (0-500) H 03/28/17 04:30 - Attending Attestation I examined this patient and my medical decision-making was reviewed with the Resident Physician on 03/30/17. I agree with the documented findings, disposition and treatment plan as described except to the extent set forth below. Mr. Avendaño is currently in observation for acute systolic heart failure. Mr Avendaño just had cardiac cath - non ischemic. He is very anxious about everything. No CP now. Eating fried chicken and [place] fries. Under a lot of stress recently. Exam Alert. Comfortable Heart distant Lungs clear now. I/P 1. Acute systolic heart failure 2. Tobacco 3. Anxiety Further diagnoses and plan as above.
[2017-03-30] MEDS: Furosemide 40 MG/4 ML VIAL IVP SCH ×2 (10:34→16:01)
[2017-03-30] MEDS ORDERED: Nitroglycerin 1,000 MCG/10 ML VIAL IV ONE (12:12)
[2017-03-30] MEDS ORDERED: 0.9 % Sodium Chloride 1,000 ML ONE ×2 (12:12→12:47)
[2017-03-30] MEDS ORDERED: Heparin 1,000 UNITS/500 mL NS 500 ML ONE (12:12)
[2017-03-30] MEDS ORDERED: *HR* Heparin 10,000 UNIT/10 ML VIAL ONE (12:12)
[2017-03-30] MEDS ORDERED: *HR* Midazolam HCl 2 MG/2 ML VIAL ONE (12:59)
[2017-03-30] MEDS ORDERED: *HR* FentaNYL (PF) 100 MCG/2 ML VIAL ONE (13:00)
--- NOTE | 2017-03-30 13:00 | Pre-Sedation Evaluation ---
Pre-sedation evaluation - Pre-sedation checklist Date of procedure: 03/30/17 Procedure: [facility] Recent Vitals: Last Vital Signs Temp 97.7 F 03/30/17 10:55 Pulse 100 03/30/17 10:55 Resp 17 03/30/17 11:15 BP 111/76 03/30/17 10:55 Pulse Ox 93 03/30/17 11:15 H&P (including ROS) documented in medical record: Yes Previous reaction to sedatives/anesthetics: No Dietary Status: NPO after Midnight Airway Assessment: Patient can open mouth completely, TMJ function normal, Micrognathia (under-bite, receding chin) absent, Neck with adequate range of motion Dentition: No loose teeth or bridges Possible difficult airway: No ASA Classification *see protocol: CLASS II-Mild systemic disease Plan of Care: Pt appropriate candidate for procedure/moderate/conscious sedation , Risks/benefits of procedure/sedation discussed w/ patient/family
--- NOTE | 2017-03-30 13:38 | Invasive Diagnostic Lab Proc ---
Name: Dale Avendaño Date of Study: 03/30/2017 Date: 1965 Ht: 70.9in Medical Record#: [id number] Age: 51 Wt: 224.87lb Gender: Male BSA: 2.21 Order #: [id number] BMI: 31.48 Physicians Procedure Physician: Atiya Fabian MD, FACC Referring MD: Referring MD: Staff Name Position Time In Janeth Chris RT (R) Monitor 12:52 PM IsidraKeeley RT (R) Scrub 12:52 PM Maria Elena Jarrett RN Business Management Intern 12:53 PM Indications Indication Cardiomyopathy Procedures Performed Procedure L HRT ARTERY/VENTRICLE ANGIO Pre-Procedure Checklist Informed consent is complete signed and on chart. H\\T\\P is on chart. ID band is on and ID verified with patient. Patient NPO for procedure The procedure was described for the patient and questions were answered. Blood Pressure: 109/75 ECG is on chart. Rhythm: NSR Plan of Care Patient will tolerate the procedure without complications. Adequate level of comfort will be maintained. Hemodynamics will remain stable Patient will recover from procedure without complications. Respiratory function will be maintained. Cardiac rhythm will remain stable. Patient temperature will be maintained. Patient and/or family have verbalized understanding of the procedure. Patient Education Chief Complaint/Reason for Test: Cardiac Cath Developmental Category: Adult (18-64 years) Developmentally Appropriate for Age: Yes Learning Barriers: None Education Needs: Procedure Education Method: Verbal Information Taught: Cardiac Cath Educational Evaluation: Able to repeat information Intravenous Access Time IV Size Location DC'd Fluid/Drip Rate Units RN 12:54 PM 20g 1 /" Patent On Arrival Rt Antecubital 0.9NaCl 25 ml/hr Allergies No Known Allergies Vital Signs Time BP (mmHg) HR (bpm) O2 Sat. RR (bpm) LOC 12:54 PM 107 / 80 88 96 % 16 5 = Fully awake and oriented or at pre-proc level 01:00 PM / % 4 = Oriented but drowsy 01:00 PM / % 4 = Oriented but drowsy 12:59 PM 109 / 75 92 94 % 11 01:04 PM 109 / 93 98 96 % 27 01:09 PM 102 / 77 101 91 % 17 01:14 PM 99 / 76 101 94 % 27 01:19 PM 111 / 68 103 95 % 13 01:25 PM 105 / 78 104 94 % 12 01:15 PM / % 4 = Oriented but drowsy Procedural Medications Time Medication Dose Units Method Given By 01:01 PM Oxygen 2 L/min nasal cannula Maria Elena Jarrett RN 01:01 PM Versed 2 mg Intravenous Maria Elena Jarrett RN 01:01 PM Fentanyl 50 mcg Intravenous Maria Elena Jarrett RN 01:03 PM Oxygen 4 L/min nasal cannula Maria Elena Jarrett RN 01:11 PM Benadryl 25 mg Intravenous Maria Elena Jarrett RN 01:11 PM Lidocaine 2% 18 ml Subcutaneous Atiya Fabian MD, [facility] ASA Classification: CLASS II- Mild systemic disease (i.e. well-controlled diabetes, hypertension, asthma, cigarette smoking) Heidi Score Preprocedure Postprocedure Activity 2- Moves 4 extremities sustained head lift Activity 2- Moves 4 extremities sustained head lift Circulation 2- SBP +/= 20 points of pre-anesthetic level Circulation 2- SBP +/= 20 points of pre-anesthetic level Consciousness 2- Awake and alert oriented x 3 Consciousness 2- Awake and alert oriented x 3 O2 Saturation 2- Able to maintain O2 satruation of 92% on room air O2 Saturation 2- Able to maintain O2 satruation of 92% on room air Respiratory 2- Able to deep breathe and cough well Respiratory 2- Able to deep breathe and cough well Total Score 10 Total Score 10 Contrast Agent: Isovue Diagnostic Contrast: 76 ml Total Contrast: 76 ml Fluoro Dose: 404 mGy Procedure Log Time Note Enter By 12:51 PM CathStat 12:52 PM Pt arrived to lab tech 2 at 12:52 [email or web address] 12:52 PM Janeth Chris RT (R) Position: Monitor Time in: 12:52 [email or web address] 12:53 PM Keeley Miner RT (R) Position: Scrub Time in: 12:52 [email or web address] 12:53 PM Maria Elena Jarrett RN Position: Business Management Intern Time in: 12:53 [email or web address] 12:53 PM Patient charges- Angio tray pack, Navilyst 3mm J, Pulse Oximetry and ACIST tubing and transducer [email or web address] 12:53 PM Case Delayed No [email or web address] 12:58 PM Recorded ECG: [id number] Condition=Condition 1 12:58 PM Case Start 12:58 PM Vitals capture started with the following parameters, Patient=Adult, Interval=5 min, Initial Unvesjro=669 mmHg, Deflation Rate=5 mmHg, Cuff placed on Left Arm 12:59 PM HR=92 bpm, YQSU=774/75 mmhg, SpO2=94.0 %, Resp=11 B/min, Comment=NSR 12:59 PM Physician arrived 12:59 [email or web address] 12[facility] PM ASA Class CLASS II- Mild systemic disease (i.e. well-controlled diabetes, hypertension, asthma, cigarette smoking) [email or web address] 12:59 PM Meet and marryet completed [email or web address] 12:59 PM Sign in performed according to hospital policy. [email or web address] 12:59 PM Procedure start 12:59 [email or web address] 12:59 PM Hair removed from procedure site in holding area using clippers. Bilateral groin prepped with Chloraprep by Nargis Vyas RN, safety strap applied then patient was draped. Skin intact. [email or web address] 01:00 PM Time: 13:00 Patient comfortable and pain free: No [email or web address] 01:00 PM Time: 13:00LOC: 4 = Oriented but drowsy [email or web address] 01:01 PM Time: 13:01 Oxygen on at 2 L/min per nasal cannula by Maria Elena Jarrett RN [email or web address] 01:01 PM Time: 13:01 Versed 2 mg Intravenous Given by Maria Elena Jarrett RN [email or web address] 01:01 PM Time: 13:01 Fentanyl 50 mcg Intravenous Given by Maria Elena Jarrett RN [email or web address] 01:03 PM Time: 13:03 Oxygen on at 4 L/min per nasal cannula by Maria Elena Jarrett RN [email or web address] 01:04 PM HR=98 bpm, WNWB=342/93 mmhg, SpO2=96.0 %, Resp=27 B/min, Comment=NSR 01:06 PM Pressure channel 1 zeroed. 01:08 PM Pressure channel 1 zeroed. 01:09 PM LL=163 bpm, BEDO=439/77 mmhg, SpO2=91.0 %, Resp=17 B/min, Comment=NSR 01:11 PM Time: 13:11 Benadryl 25 mg Intravenous Given by Maria Elena Jarrett RN [email or web address] 01:11 PM Time out performed according to hospital policy [email or web address] 01:11 PM Pressure channel 1 zeroed. 01:12 PM Time: 13:11 18 ml Lidocaine 2% to right groin Subcutaneous Given by Atiya Fabian MD, [facility] [email or web address] 01:12 PM Pressure channel 1 zeroed. 01:13 PM Access obtained by percutaneous puncture. 5Fr 10cm Terumo [place] sheath placed in right Femoral artery. [id number] [email or web address] 01:13 PM 0.035 145cm Navilyst 3mmJ wire [id number] [email or web address] 01:13 PM 5Fr FL 4 catheter inserted over the wire DN [email or web address] 01:14 PM OK=204 bpm, NIBP=99/76 mmhg, SpO2=94.0 %, Resp=27 B/min, Comment=NSR 01:14 PM Pressure channel 1 zeroed. 01:15 PM Time: 13:00 Patient comfortable and pain free: Yes [email or web address] 01:15 PM Time: 13:00LOC: 4 = Oriented but drowsy [email or web address] 01:15 PM LCA angiography performed in multiple views. [email or web address] 01:15 PM Recorded Pressure: Ao, WZ=551, Condition=Condition 1 (Aorta) Ao 73/61/67 01:16 PM Catheter removed [email or web address] 01:17 PM 5Fr FR 4 catheter inserted over the wire DN [email or web address] 01:17 PM RCA angiography performed in multiple views. [email or web address] 01:18 PM RCA angiography performed in multiple views. [email or web address] 01:18 PM Recorded Pressure: Ao, EN=273, Condition=Condition 1 (Aorta) Ao 82/70/75 01:18 PM Coronary Dominance: right [email or web address] 01:18 PM Catheter removed [email or web address] 01:19 PM 5Fr Pigtail catheter inserted over the wire DN [email or web address] 01:19 PM Catheter selectively placed in left ventricle [email or web address] 01:19 PM TA=840 bpm, ELPU=422/68 mmhg, SpO2=95.0 %, Resp=13 B/min, Comment=NSR 01:19 PM Recorded Pressure: LV, CP=567, Condition=Condition 1 (Left Ventricle) LV 77/28/32 01:20 PM Bolus angiogram of left Ventricle complete: 10 ml/sec for a total of 30 mls [email or web address] 01:20 PM Recorded Pressure: LV, Ao, HR=97, Condition=Condition 1 (Left Ventricle) LV 87/21/87, (Aorta) Ao 82/68/74 01:20 PM Catheter removed [email or web address] :21 PM Bolus angiogram of right Femoral complete: 4 ml/sec for a total of 7 mls [email or web address] 01:22 PM Procedure completed at 13:22 [email or web address] 01:22 PM Sign out completed: Radiation Dose 403.66 mGy Fluoro Time: 1.2 Isovue 370 - 200ml contrast 60 ml given by Atiya Fabian MD, FACC. Complications: NoneCardiac Rehab Consult needed: YesConfirmed administered medications: Yes [email or web address] 01:22 PM Isovue 370 - 200ml,1 Bottle(s) used. [email or web address] 01:25 PM OZ=496 bpm, XDFQ=893/78 mmhg, SpO2=94.0 %, Resp=12 B/min, Comment=NSR 01:25 PM Arterial sheath pulled, Mynx closure device used and was Successful S/N. [email or web address] 01:25 PM Post ECG NSR [email or web address] 01:25 PM Post Blood Pressure 105/78 [email or web address] 01:26 PM Information taught Cardiac Cath and Mynx [email or web address] 01:26 PM Education needs Procedure, Plan of Care, and Disease Process [email or web address] 01:26 PM Learning barriers :None [email or web address] 01:26 PM Education Methods Verbal [email or web address] 01:26 PM Education evaluation Able to repeat information [email or web address] 01:26 PM Site status No bleeding/hematoma - Rt Groin as reported by Keeley Miner RT (R) at 13:26 [email or web address] 01:26 PM Opsite applied [email or web address] 01:26 PM Delay to floor No [email or web address] 01:26 PM Family placed in consult room. [email or web address] 01:26 PM Complications: None [email or web address] 01:26 PM Fluoro Time: 1.2 [email or web address] 01:26 PM Isovue 370 - 200ml contrast 76 ml given by Atiya Fabian MD, FACC. [email or web address] 01:26 PM Radiation Dose 403.66 mGy [email or web address] 01:30 PM Time: 13:15 Patient comfortable and pain free: Yes [email or web address] 01:30 PM Time: 13:15LOC: 4 = Oriented but drowsy [email or web address] 01:31 PM Report given to Kenny LLOYD Pt taken to E Room #28. 13:31 [email or web address] 01:32 PM Complications: None [email or web address] 01:32 PM Patient out of room: 13:32 [email or web address] Complications Complication None None None Hemodynamics Pressures Site Systolic/A Wave Diastolic/V Wave Mean AO 73 61 67 AO 82 70 75 LV 77 28 32 LV 87 21 87 AO 82 68 74 Post Procedure Information Blood Pressure: 105/78 mmHg Rhythm: NSR Post procedural instructions were given Closure Device Time Device Success/Fail 03/30/2017 1:27:00 PM MynxGrip Successful Site Checks Time Location Status Staff Sheath In? Note 01:26 PM Rt Groin No bleeding/hematoma Keeley Miner RT (R) Pulses Time Site Pre-Procedure Post-Procedure Note 03/30/2017 12:54:00 PM Bilateral DP \\T\\ PT 2+ 2+ 03/30/2017 12:54:00 PM Bilateral radial 2+ 2+ Updated by Janeth Chris, RT(R) on 03/30/2017 1:33:40 PM electronically signed on 03/30/2017 1:34:08 PM with status of Final
--- NOTE | 2017-03-30 15:49 | Invasive Diagnostic Lab ---
Name: Dale Avendaño Date of Study: 03/30/2017 Date: 1965 Ht: 180.0 cm /70.9 in Medical Record#: [id number] Age: 51 Wt: 102. kg / 224.87 lb Account/Order#: [id number] Gender: Male BSA: 2.21 Order #: [id number] Fluoro Dose: 404 mGy BMI: 31.48 Procedure Physician: Atiya Fabian MD, FACC Referring MD: Referring MD: Procedures Performed: LEFT HEART CATH Indications: Cardiomyopathy Impressions: Nonobstructive coronary artery disease. There is severe LV Dysfunction EF 10% Non-ischemic cardiomyopathy Recommendations: Optimal medical therapy of patient's disease. Aggressive risk factor modification. History/Risk Factors: previous smoker Hypertension CHF Procedure Access obtained in the right Femoral artery by percutaneous puncture Complications: None, None Contrast: Isovue 76ml Closure Device: MynxGrip Hemodynamics: Pressures Site Systolic/ A Wave Diastolic/ V Wave End Diastolic/ Mean HR AO 73 61 67 105 AO 82 70 75 101 LV 77 28 32 105 LV 87 21 87 85 AO 82 68 74 104 LV Ventriculography Ejection Method: LV Gram Ejection Fraction: 10% Wall Motion: NAVARRO Anterobasal Severe Hypokinesis Anterolateral Severe Hypokinesis Apical: Severe Hypokinesis Inferoapical Severe Hypokinesis Inferobasal Severe Hypokinesis Coronary Dominance: right Lesion Findings/Interventions * Left Main Coronary Artery The LMCA is angiographically free of disease. * Left Anterior Descending There is a 20% stenosis in the Mid LAD. * Circumflex The Circumflex is angiographically free of disease. The 1st Marginal is angiographically free of disease. * Right Coronary Artery There is a 30% stenosis in the Proximal RCA. There is a 30% stenosis in the Mid RCA. Updated by RT Aiden(R) on 03/30/2017 1:30:05 PM Atiya Fabian MD, FACC electronically signed on 03/30/2017 3:46:09 PM with status of Final
[2017-03-30] MEDS: *HR* LORazepam 0.5 MG TABLET PO PRN (16:23)
[2017-03-31] MEDS: Ipratropium/Albuterol Neb 3 ML IH SCH ×3 (03:54→11:12)
[2017-03-31 05:43] LABS: Basophils # 0.1 K/mcL (0.0-0.2); Basophils % 0.8 %; Eosinophils # 0.2 K/mcL (0.0-0.6); Eosinophils % 2.8 %; Hematocrit 44.4 % (37.5-50.1); Hemoglobin 14.6 g/dL (12.9-16.9); Immature Granulocytes % 0.4 % (0-4); Lymphocytes # 2.4 K/mcL (0.6-4.6); Lymphocytes % 34.1 %; Mean Corpuscular HGB Conc 32.9 g/dL (31.6-35.5); Mean Corpuscular Hemoglobin 31.9 pg (28.0-33.3); Mean Corpuscular Volume 96.9 fL (83.0-100.0); Monocytes # 0.7 K/mcL (0.0-1.3); Monocytes % 10.3 %; Neutrophils # 3.6 K/mcL (1.6-8.9); Platelet Count 231 K/mcL (140-400); Red Blood Count 4.58 M/mcL (4.19-5.50); Red Cell Distribution Width 14.2 % (11.5-14.5); Segmented Neutrophils % 51.6 %
[2017-03-31 05:55] LABS: BUN/Creatinine Ratio 23 (6-26); Blood Urea Nitrogen 23 mg/dL (8-26); Calcium 9.1 mg/dL (8.6-10.8); Carbon Dioxide 24 mEq/L (19-29); Chloride 104 mEq/L (98-109); Glucose 105 mg/dL (70-99); Magnesium 2.1 mg/dL (1.6-2.6); Osmolality,Calculated 294 (280-300); Potassium 3.9 mEq/L (3.5-4.5); Sodium 140 mEq/L (136-145); eGFR For African Americans > 60 (> 60); eGFR For Non-African Americans > 60 (> 60)
[2017-03-31 07:17] VITALS: BP 111/82
--- NOTE | 2017-03-31 08:44 | Cardiology Progress Note ---
Date of Encounter: 03/31/17 Time of Encounter: 08:44 Assessment and Plan (1) Acute systolic heart failure Current Visit: Yes Status: Acute - New onset congestive heart failure. Echocardiogram done 03/28/2017 shows severe global hypokinesis, left ventricular severe dilation, mild mitral regurgitation and mild tricuspid regurgitation - [facility] yesterday showed nonischemic cardiomyopathy with EF 10%. - Pt will need repeat echo in 3 months. If EF still poor, will need ICD placement. - F/u in outpatient cardiac clinic in 2-3 weeks. - cardio will sign off at this time, please reconsult as needed. (2) URI (upper respiratory infection) Current Visit: Yes Status: Acute Management per primary team. Qualifiers: URI type: unspecified URI Qualified Code(s): J06.9 - Acute upper respiratory infection, unspecified (3) Nonischemic cardiomyopathy Current Visit: Yes Status: Acute 2/2 alcohol abuse vs. viral vs. LV noncompaction - Rec lifestyle modifications, decrease alcohol consumption, decrease tobacco abuse - continue coreg 6.25mg BID, lisinopril 2.5mg daily - needs repeat echo in 3 monthsk; if EF still <35%, will need ICD - needs outpatient cardiac MRI to evaluate for LV noncompaction - f/u cardio clinic in 2-3 weeks. Discussion w patient/family: The assessment and plan as outlined above was discussed with the patient and/or family members who expressed understanding and agreement. All questions were answered. Thank you for involving us in the care of your patient. Please call with any questions. Subjective Principal diagnosis: nonischemic cardiomyopathy Interval history: Pt's sister reportedly has left ventricular non-compaction which is autosomal dominant and had presented with similar symptoms several years ago. She follows with leadership development instructor Dr. Lloyd. Patient states he feels much better and does not have any difficulty breathing or chest pain today. Feels ready to go home. Objective Vital Signs, Last 4 Hours Temp Pulse Resp BP Pulse Ox 03/31/17 07:47 16 96 03/31/17 07:13 98.0 F 95 16 111/82 96 03/31/17 05:00 98.3 F 98 16 104/79 96 General: Conversant, No Apparent Distress HEENT: Atraumatic, Mucus Membranes Moist Neck: No JVD Cardiac: Reg Rate and Rhythm Lungs: Normal Breath Sounds Neuro: Alert and responsive, No focal deficits noted Abdomen: Soft, Non-Tender Skin: No rashes noted on visualized skin Musculoskeletal: No Chest Wall Tenderness Extremities: No Edema, Normal Pulses Results 03/31/17 04:51 03/31/17 04:51 Lab Results 03/31/17 03/31/17 04:51 04:51 WBC 7.1 Hgb 14.6 Hct 44.4 Plt Count 231 Sodium 140 Potassium 3.9 Chloride 104 Carbon Dioxide 24 BUN 23 D Creatinine 1.01 Glucose 105 H Calcium 9.1 Magnesium 2.1 - Imaging and Cardiology Cardiac cath: report reviewed ([facility] 03/30/17- nonobstructive CAD with LAD 20% stenosis and RCA 30% stenosis. Severe LV dysfunction with EF 10%) Consult Discharge Plan - Plan Referrals: Bj Carolina DO [Partnered Physician] - 04/06/17 9:30 am Won Fabian MD [Partnered Physician] - (office will call you at home with appointment date and time)
[2017-03-31] MEDS: Furosemide 40 MG/4 ML VIAL IVP SCH (08:51)
[2017-03-31] MEDS: *HR* Heparin 5,000 UNIT/ML VIAL SQ SCH (08:51)
[2017-03-31] MEDS: Aspirin 81 MG TAB.CHEW PO SCH (08:52)
[2017-03-31] MEDS: *HR* LORazepam 0.5 MG TABLET PO PRN (08:53)
--- NOTE | 2017-03-31 13:49 | Discharge Summary ---
<Arik Rabago - Last Filed: 03/31/17 14:10> Date of Encounter: 03/31/17 Time of Encounter: 13:42 - Discharge Diagnosis (1) Acute systolic heart failure Priority: Primary Status: Acute (2) DVT prophylaxis Priority: Secondary Status: Acute (3) URI (upper respiratory infection) Priority: Secondary Status: Acute Qualifiers: URI type: unspecified URI Qualified Code(s): J06.9 - Acute upper respiratory infection, unspecified - Discharge Medications Prescriptions: Aspirin 81 mg PO DAILY #30 tab.chew Atorvastatin [Lipitor] 80 mg PO HS #60 tablet Carvedilol [Coreg] 6.25 mg PO BIDWM #60 tablet Furosemide [Lasix] 40 mg PO DAILY #30 tablet Lisinopril [Zestril] 2.5 mg PO HS #30 tablet Home Medications: Amoxicillin/Clavulanate [Augmentin] 875 mg PO BIDWM 03/28/17 [History] Bisacodyl [Dulcolax] 10 mg PO DAILY PRN 03/28/17 [History] Bismuth Subsalicylate [Pepto-Bismol] 262 mg PO BID PRN 03/28/17 [History] Loperamide HCl [Imodium A-D] 2 mg PO BID PRN 03/28/17 [History] Aspirin 81 mg PO DAILY #30 tab.chew 03/31/17 [Rx] Atorvastatin [Lipitor] 80 mg PO HS #60 tablet 03/31/17 [Rx] Carvedilol [Coreg] 6.25 mg PO BIDWM #60 tablet 03/31/17 [Rx] Furosemide [Lasix] 40 mg PO DAILY #30 tablet 03/31/17 [Rx] Lisinopril [Zestril] 2.5 mg PO HS #30 tablet 03/31/17 [Rx] Allergies/Adverse Reactions: Allergies No Known Allergies Allergy (Verified 03/28/17 03:41) Procedures/tests Complete & Pending: Procedures Performed prior 72 hours Category Date Time Status CL Cardiac Catheterization [CL] Routine Chocolate Temperer 03/30/17 08:07 Completed Date of admission: 03/28/17 07:03 Primary care physician: PCP NO Consults: 03/28/17 19:06 Consult to Cardiology [CONS] Routine Comment: Consulting Provider: Cardiology [place] Reason for Consult: please evaluate for new onset CHF with low EF with no prior history of CHF presenting with worsening CHF. Call Completed: No Discharging clinician: Arik Rabago Anticipated date of discharge: 03/31/17 - Patient Status Disposition: Home, Self-Care Condition: Good Functional capacity at discharge: independent ambulation Overall status at discharge: patient is progressing back to baseline - Discharge Instructions Instructions: Aspirin/Codeine (By mouth), Lisinopril (By mouth), Furosemide ( By mouth), Atorvastatin (By mouth), Carvedilol (By mouth), Heart Failure (DC) Follow Up With: Bj Carolina DO [Partnered Physician] - 04/06/17 9:30 am Won Fabian MD [Partnered Physician] - (office will call you at home with appointment date and time) Forms: Inpatient Work/School Release Additional Instructions: Please eturn to ER if there are worsening shortness of breath, chest pain, nausea syncope. will need a repeat echocardiogram in 3 months and possible ICD placement if ejection fraction has not improved follow-up with cardiology in 2-3 weeks it is very important to comply with the medication regiment he has been started on. he will also obtain an outpatient cardiac MRI for valuation of left ventricular non-compaction. - Diet and Activity Activity: increase activity as tolerated Diet: low fat, low cholesterol, low salt diet Hospital course: Mr. Avendaño is a 51 year old male presented with shortness of breath of. States he had an upper respiratory tract infection for the past few weeksand started on Augmentinlast Wednesday. Shortness of breath worse with laying down and exertion. Shortness of breath improved with IV Lasix in the ER. Underwent CTA negative for PE but showed cardiomegaly, interstitial edema and vascular congestion. Echo EF of 10-15 %. No previous hx of heart disease, or cardiac work up. Diuresed for 24 hours. Underwent LHC which was negative for significant CAD. Started on aspirin, atorvastatin, coreg, lisinopril. Acute systolic HF 2nd to viral, stress induced, alochol, Left ventricular noncompaction. Patient had 2 weeks sinusitis/URI before presentation of SOB. Has had deaths in family and undergoing bankruptcy, under alot of stress. Hx of alcohol abuse in his twenties. States he drinks couple beers here and there and continues to drink hard liquor. No evidence of alcohol withdrawal: no tremors, diaphoresis, confusion, tachycardia, fever. Family history of left ventricular noncompaction in his sister which is autosomal dominant will be evaluated outpatient via cardiac MRI. Plan: continue aspirin, atorvastatin, coreg, lisinopril, furosimide. follow up with cardiology in 2-3 weeks for outpatient cardiac MRI repeat echo in 3 months to monitor EF, if still poor <35% may need AICD Finish antibiotic course for URI. - Time Spent with Patient Total time spent providing and/or coordinating discharge services: - Constitutional Vitals: Temp Pulse Resp BP Pulse Ox 98.0 F 95 16 111/82 97 03/31/17 07:13 03/31/17 07:13 03/31/17 11:12 03/31/17 07:13 03/31/17 11:12 General appearance: Present: A&O X 3, no acute distress - Head Head exam: Present: atraumatic, normocephalic - Eye Eye exam: Present: PERRL, conjuntiva pink, sclera anicteric Pupils: Present: PERRL - Neck Neck exam general surgery: Present: supple, trachea midline. Absent: lymphadenopathy - Respiratory Respiratory exam: Present: CTAB. Absent: accessory muscle use, rales, rhonchi, wheezes - Cardiovascular Cardiovascular exam: Present: RRR, +S1, +S2. Absent: diastolic murmur, gallop, rubs, systolic murmur - GI/Abdominal GI/Abdominal exam: Present: normal bowel sounds, soft, no peritoneal signs. Absent: distended, tenderness - Extremities Exam Extremities exam: Present: warm, radial pulses palpable and symetrical. Absent : calf tenderness, cyanotic, pedal edema - Skin Skin exam: Present: dry, intact <Arvin Talavera - Last Filed: 03/31/17 19:49> Date of Encounter: 03/31/17 - Discharge Diagnosis (1) Acute systolic heart failure Priority: Primary Status: Acute (2) HTN (hypertension) Priority: Secondary Status: Acute Qualifiers: Hypertension type: essential hypertension Qualified Code(s): I10 - Essential (primary) hypertension (3) URI (upper respiratory infection) Priority: Secondary Status: Acute Qualifiers: URI type: unspecified URI Qualified Code(s): J06.9 - Acute upper respiratory infection, unspecified (4) Anxiety about health Priority: Primary Status: Acute (5) Tobacco abuse Priority: Secondary Status: Acute Procedures/tests Complete & Pending: Procedures Performed prior 72 hours Category Date Time Status CL Cardiac Catheterization [CL] Routine Chocolate Temperer 03/30/17 08:07 Completed Date of admission: 03/28/17 07:03 Primary care physician: PCP NO Consults: 03/28/17 19:06 Consult to Cardiology [CONS] Routine Comment: Consulting Provider: Cardiology [place] Reason for Consult: please evaluate for new onset CHF with low EF with no prior history of CHF presenting with worsening CHF. Call Completed: No Hospital course: Mr. Avendaño is a 51 year old male - Time Spent with Patient Total time spent providing and/or coordinating discharge services: - Constitutional Vitals: Temp Pulse Resp BP Pulse Ox 98.0 F 95 16 111/82 97 03/31/17 07:13 03/31/17 07:13 03/31/17 11:12 03/31/17 07:13 03/31/17 11:12 - Attending Attestation I examined this patient and my medical decision-making was reviewed with the Resident Physician on 03/31/17 I agree with the documented findings, disposition and treatment plan as described except to the extent set forth below. Mr Avendaño feels better today. He is up and around and feels ready to go home. Exam Alert. Comfortable Heart reg No wheeze Plan d/c home today.
== END 2017-03-31 14:22 | disposition home or self-care (01) ==
LOC: 2NENU 03:39 → EMEROO 03:39 → SUATTDRO 07:03 → 2NENU 07:35
PROVIDERS: ADMIT Internal Medicine; ATTEND Internal Medicine